=== PATIENT | female | born 1965 | race Caucasian/White ===

== ENCOUNTER 2021-05-24 03:49 | Emergency (ER) | payer OTHER ==
[~2021-05-24] VITALS: Ht 165.1 cm; Wt 65.8 kg
--- NOTE | 2021-05-24 05:20 | NUR ---
PATIENT BIBSELF C/O ABSCESS ON RIGHT UPPER THIGH, PAIN FOR THE PAST FOUR DAYS, FELT WORST TODAY. PATIENT IS A/O X 4, RR EVEN AND UNLABORED, NO SOB NOTED, PATIENT CONNECTED TO CARDIAC MONIOTR AND POX.
--- NOTE | 2021-05-24 05:27 | NUR ---
lab at bedside
--- NOTE | 2021-05-24 05:29 | NUR ---
[facility], FAX [phone]
--- NOTE | 2021-05-24 05:29 | NUR ---
covid swab collected and sent to lab
[2021-05-24] MEDS ORDERED: MORPHINE SULFATE INJ 2 MG/ML DISP.SYRIN IV ONE ×2 (05:30→13:00)
[2021-05-24] MEDS ORDERED: ONDANSETRON HCL/PF 4 MG/2 ML VIAL IVP ONE (05:30)
[2021-05-24] MEDS ORDERED: VANCOMYCIN 1 GM in IV D5W 250 ML IV ONE (05:30)
[2021-05-24] MEDS ORDERED: MORPHINE SULFATE INJ 4 MG/ML DISP.SYRIN ONE ×2 (05:32→13:00)
[2021-05-24] MEDS ORDERED: VANCOMYCIN 1 GM VIAL ONE (05:32)
[2021-05-24] MEDS ORDERED: ONDANSETRON HCL/PF 4 MG/2 ML VIAL ONE (05:32)
[2021-05-24 06:17] LABS: BASOPHILS # (AUTO) 0.1 K/uL (0.0-0.2); BASOPHILS % (AUTO) 0.5 % (0.0-2.0); EOSINOPHILS % (AUTO) 1.9 % (0.0-6.0); HEMATOCRIT 37 % (33-45); HEMOGLOBIN 12.1 g/dL (11.5-14.8); LYMPHOCYTES # (AUTO) 2.4 K/uL (0.8-4.8); LYMPHOCYTES % (AUTO) 17.6 % (20.0-44.0); MEAN CORPUSCULAR HGB CONC 32 g/dl (31.0-36.0); MEAN CORPUSCULAR VOLUME 93 fL (82-100); MONOCYTES # (AUTO) 0.8 K/uL (0.1-1.30); MONOCYTES % (AUTO) 6.2 % (2.0-12.0); NEUTROPHILS # (AUTO) 10.1 K/uL (1.8-8.9); NEUTROPHILS % (AUTO) 73.8 % (43.0-81.0); PLATELET COUNT (AUTO) 357 K/uL (150-450); RED BLOOD CELL COUNT(AUTO) 4.04 MIL/uL (4.0-5.2); WHITE BLOOD COUNT (AUTO) 13.7 K/uL (4.3-11.0)
[2021-05-24 06:19] LABS: CALCIUM, SERUM 9.2 mg/dL (8.5-10.1); CREATININE 0.9 mg/dL (0.6-1.3); POTASSIUM 3.9 mmol/L (3.5-5.1)
[2021-05-24 06:33] LABS: ALBUMIN 3.9 g/dL (3.4-5.0); BILIRUBIN,DIRECT 0.1 mg/dL (0.0-0.2); BILIRUBIN,TOTAL 0.3 mg/dL (0.2-1.0); TOTAL PROTEIN, SERUM 8.5 g/dL (6.4-8.2)
--- NOTE | 2021-05-24 07:33 | NUR ---
DR. VANCE [phone] FOR MD TO .
--- NOTE | 2021-05-24 07:56 | NUR ---
DR. ENA BRASWELL MD TO
--- NOTE | 2021-05-24 11:52 | NUR ---
JAI LARA, [facility] [phone] NO BED. AT THIS TIME [phone] IS FAX CALL TELE NUMBER [phone]
--- NOTE | 2021-05-24 12:02 | NUR ---
FAXED CLINICALS TO [facility] [phone] TELE [phone]
--- NOTE | 2021-05-24 12:27 | NUR ---
PT ACCEPTED TO [facility] UNDER DR. ORELLANA CALL [phone] FOR REPORT
--- NOTE | 2021-05-24 12:32 | NUR ---
[facility] CALLED ETA 45 MINS.
--- NOTE | 2021-05-24 13:00 | NUR ---
REPORT GIVEN TO NURSE MOYA FROM [facility] ER
[2021-05-24 13:20] VITALS: BP 132/75
== END 2021-05-24 13:30 | disposition short-term general hospital (02) ==
LOC: ER 03:50
DX: L02.415 Cutaneous abscess of right lower limb (principal); L03.115 Cellulitis of right lower limb; Z20.822 Contact with and (suspected) exposure to COVID-19; Z59.00 Homelessness unspecified
CPT/HCPCS: 36415; 80048; 80076; 83605; 85025; 87040 ×2; 87081; 87426; 96365; 96375; 96376; 99285; C9803; J2270 ×2; J2405; J3370